=== PATIENT | female | born 1935 | race Caucasian/White ===

== ENCOUNTER 2022-06-25 10:44 | Emergency (ER) | payer OTHER ==
[~2022-06-25] VITALS: Ht 148.6 cm; Wt 59.0 kg
[2022-06-25 10:45] VITALS: BP 200/112
[2022-06-25] MEDS ORDERED: ONDANSETRON 4 MG/2 ML VIAL IVP ONE (11:20)
[2022-06-25] MEDS ORDERED: NACL 0.9% 1,000 ML IV ONE (11:20)
[2022-06-25 11:34] LABS: BASOPHILS % (AUTO) 0.3 % (0.0-2.0); EOSINOPHILS % (AUTO) 0.4 % (0.0-4.0); HEMATOCRIT 39.2 % (36-48); HEMOGLOBIN 12.9 g/dL (12.0-16.0); LYMPHOCYTES # (AUTO) 1.1 K/uL (2.5-16.5); LYMPHOCYTES % (AUTO) 11.1 % (20.5-51.1); MEAN CORPUSCULAR HEMOGLOBIN 28 pg (27-31); MEAN CORPUSCULAR HGB CONC 33 g/dL (33-37); MEAN CORPUSCULAR VOLUME 85.9 fL (80-94); MONOCYTES # (AUTO) 0.5 K/uL (0.8-1.0); NEUTROPHILS # (AUTO) 8.5 K/uL (1.8-7.7); NEUTROPHILS % (AUTO) 83.2 % (42.2-75.2); PLATELET COUNT (AUTO) 377 K/uL (140-450); RED BLOOD CELL COUNT(AUTO) 4.56 MIL/uL (4.20-5.40); RED CELL DISTRIBUTION WIDTH 14.4 % (11.6-13.7); WHITE BLOOD COUNT (AUTO) 10.2 K/uL (4.8-10.8)
--- NOTE | 2022-06-25 11:35 | NUR ---
ASSUMED PATIENT CARE, NURSING ASSESSMENT COMPLETED.
--- NOTE | 2022-06-25 11:55 | NUR ---
TO CT VIA [facility].
[2022-06-25 11:58] LABS: ANION GAP 7.2 (8-16); ASPARTATE AMINOTRANSFERASE 16 U/L (15-37); CARBON DIOXIDE 33.1 mmol/L (21-32); CHLORIDE 94 mmol/L (98-107); CREATININE 0.9 mg/dL (0.6-1.3); GLUCOSE 208 mg/dL (74-106); POTASSIUM 3.3 mmol/L (3.5-5.1); SODIUM SERUM 131 mmol/L (136-145); TOTAL BILIRUBIN 0.4 mg/dL (0.0-1.0); UREA NITROGEN, BLOOD 11 mg/dL (7-18)
--- NOTE | 2022-06-25 12:05 | NUR ---
BACK FROM CT.
[2022-06-25] MEDS ORDERED: DOXY-690 PO (13:58)
[2022-06-25 16:31] VITALS: BP 137/64
--- NOTE | 2022-06-25 16:32 | NUR ---
DISPO AND MEDICAL DECISION MAKING DC HOME WITH E-RX AND AFTERCARE INSTRUCTIONS, UNDERSTOOD BY PATIENT AND FAMILY WELL. VS WNL, DENIES DIZZINESS, AMBULATORY WITH STEADY GAIT, NAUSEA RESOLVED.
== END 2022-06-25 16:26 | disposition home or self-care (01) ==
LOC: MED 10:44
DX: R19.7 Diarrhea, unspecified (principal); R11.2 Nausea with vomiting, unspecified; R10.9 Unspecified abdominal pain; J18.9 Pneumonia, unspecified organism; I10 Essential (primary) hypertension; E78.5 Hyperlipidemia, unspecified; Z79.899 Other long term (current) drug therapy; Z88.0 Allergy status to penicillin
CPT/HCPCS: 36415; 70450; 71045; 74176; 80053; 84484; 85025; 96361; 96374; 99285; J2405; J7030

== ENCOUNTER 2022-08-02 19:09 | Inpatient (IN) | payer OTHER ==
[~2022-08-02] VITALS: Ht 152.4 cm; Wt 61.2 kg
[~2022-08-02 19:09] MED LIST: DOXY-690 PO
[2022-08-02 19:50] VITALS: BP 160/93
--- NOTE | 2022-08-02 19:50 | NUR ---
TO BED VIA WHEELCHAIR
[2022-08-02] MEDS ORDERED: ACETAMINOPHEN EXTRA STRENGTH 500 MG TAB PO ONE (20:00)
--- NOTE | 2022-08-02 20:00 | NUR ---
RECEIVED INBED 3 WITH C/O FEVER, COUGH STARTED YESTERDAY, SHE WAS GIVEN MOTRIN 600MG 1730MG
[2022-08-02] MEDS ORDERED: NACL 0.9% 1,000 ML IV ONE (20:55)
[2022-08-02 21:10] LABS: BASOPHILS % (AUTO) 0.3 % (0.0-2.0); EOSINOPHILS % (AUTO) 0.2 % (0.0-4.0); HEMATOCRIT 37.6 % (36-48); HEMOGLOBIN 12.4 g/dL (12.0-16.0); LYMPHOCYTES # (AUTO) 0.8 K/uL (2.5-16.5); LYMPHOCYTES % (AUTO) 6.2 % (20.5-51.1); MEAN CORPUSCULAR HEMOGLOBIN 28 pg (27-31); MEAN CORPUSCULAR HGB CONC 33 g/dL (33-37); MEAN CORPUSCULAR VOLUME 84.7 fL (80-94); MONOCYTES # (AUTO) 0.7 K/uL (0.8-1.0); MONOCYTES % (AUTO) 5.4 % (1.7-9.3); NEUTROPHILS # (AUTO) 11.3 K/uL (1.8-7.7); NEUTROPHILS % (AUTO) 87.9 % (42.2-75.2); PLATELET COUNT (AUTO) 374 K/uL (140-450); RED BLOOD CELL COUNT(AUTO) 4.43 MIL/uL (4.20-5.40); RED CELL DISTRIBUTION WIDTH 14.6 % (11.6-13.7); WHITE BLOOD COUNT (AUTO) 12.9 K/uL (4.8-10.8)
[2022-08-02 21:40] LABS: ALBUMIN 4.2 g/dL (3.4-5.0); ANION GAP 13.1 (8-16); ASPARTATE AMINOTRANSFERASE 9 U/L (15-37); CARBON DIOXIDE 28.9 mmol/L (21-32); CHLORIDE 94 mmol/L (98-107); CREATININE 0.7 mg/dL (0.6-1.3); GLUCOSE 202 mg/dL (74-106); SODIUM SERUM 133 mmol/L (136-145); TOTAL BILIRUBIN 0.7 mg/dL (0.0-1.0); UREA NITROGEN, BLOOD 11 mg/dL (7-18)
--- NOTE | 2022-08-02 22:00 | NUR ---
UP TO BR WITH DAUGHTER, STEADY GAIT
[2022-08-02] MEDS ORDERED: AZITHROMYCIN 500 MG in DEXTROSE 5% 250 ML IV ONE (22:10)
[2022-08-02] MEDS ORDERED: POTASSIUM CHLORIDE 10 MEQ TABER PO ONE (23:05)
[2022-08-02] MEDS ORDERED: KCL 20 MEQ IN 100 mL PREMIX 100 ML IV ONE (23:05)
[2022-08-02] MEDS ORDERED: POTASSIUM CHLORIDE 10 MEQ TABER PO PRN (23:10)
[2022-08-02] MEDS ORDERED: MAGNESIUM OXIDE 400 MG TAB PO PRN (23:10)
[2022-08-02] MEDS ORDERED: ACETAMINOPHEN 325 MG TAB PO PRN (23:10)
[2022-08-02] MEDS ORDERED: MORPHINE SULFATE 4 MG/ML SYR IVP PRN (23:10)
[2022-08-02] MEDS ORDERED: HYDROcodone/APAP 5/325 MG 1 TAB TAB PO PRN (23:10)
[2022-08-02] MEDS ORDERED: AZITHROMYCIN 500 MG INJ VIAL IV ONE (23:29)
[2022-08-02] MEDS ORDERED: cefTRIAXone 1,000 MG VIAL ONE (23:30)
[2022-08-02] MEDS: NACL 0.9% 1,000 ML IV SCH (23:59)
[2022-08-03] MEDS ORDERED: ALBUTEROL SULFATE/IPRATROPIU 3 ML SOL IH SCH (01:00)
--- NOTE | 2022-08-03 01:06 | NUR ---
REPORT TO [facility]
[2022-08-03 01:30] VITALS: BP 155/83
--- NOTE | 2022-08-03 01:30 | NUR ---
RECEIVED PT FROM ER, PATIENT IS AWAKE,ALERT AND ORIENTED. DENIES PAIN. DENIES SHORTNESS OF BREATH. DAUGHTER AT THE BEDSIDE. SKIN WARM AND DRY TO TOUCH. AMBULATED TO THE BATHROOM AND BACK TO BED WITH STEADY GAIT. SAFETY PRECAUTIONS IN PLACE, CALL LIGHT GIVEN TO PT, INSTRUCTION ON USE PROVIDED, RETURN DEMONSTRATION DONE, ENCOURAGED TO CALL IF ASSISTANCE IS NEEDED.
[2022-08-03] MEDS: NACL 0.9% 1,000 ML IV SCH ×2 (02:23→19:00)
[2022-08-03 04:00] VITALS: BP 148/75
--- NOTE | 2022-08-03 06:52 | NUR ---
PATIENT IS AWAKE, EATING PUDDING. DENIES PAIN. ALL NEEDS ATTENDED TO. SAFETY PRECAUTIONS IN PLACE, CALL LIGHT IN REACH.
--- NOTE | 2022-08-03 07:36 | NUR ---
RECEIVED PATIENT FROM REFERENCE ARCHIVIST NURSE.PATIENT SLEEPING IN BED.NO OTHER SIGNS OF DISTRESS NOTED. CHEST RISING NAD FALLING EVENLY.CALL LIGHT WITHIN REACH. POC DISCUSSED WITH ENDORSING NURSE.WILL CONTINUE TO MONITOR.
[2022-08-03 07:38] LABS: BASOPHILS % (AUTO) 0.2 % (0.0-2.0); EOSINOPHILS % (AUTO) 0.1 % (0.0-4.0); HEMATOCRIT 34.6 % (36-48); HEMOGLOBIN 11.4 g/dL (12.0-16.0); LYMPHOCYTES # (AUTO) 0.8 K/uL (2.5-16.5); LYMPHOCYTES % (AUTO) 5.6 % (20.5-51.1); MEAN CORPUSCULAR HEMOGLOBIN 28 pg (27-31); MEAN CORPUSCULAR HGB CONC 33 g/dL (33-37); MEAN CORPUSCULAR VOLUME 84.6 fL (80-94); MONOCYTES % (AUTO) 7.2 % (1.7-9.3); NEUTROPHILS # (AUTO) 12.5 K/uL (1.8-7.7); NEUTROPHILS % (AUTO) 86.9 % (42.2-75.2); PLATELET COUNT (AUTO) 340 K/uL (140-450); RED BLOOD CELL COUNT(AUTO) 4.09 MIL/uL (4.20-5.40); RED CELL DISTRIBUTION WIDTH 14.7 % (11.6-13.7); WHITE BLOOD COUNT (AUTO) 14.4 K/uL (4.8-10.8)
[2022-08-03 07:50] LABS: ANION GAP 12.8 (8-16); CARBON DIOXIDE 26.1 mmol/L (21-32); CHLORIDE 101 mmol/L (98-107); CREATININE 0.6 mg/dL (0.6-1.3); GLUCOSE 187 mg/dL (74-106); SODIUM SERUM 137 mmol/L (136-145); UREA NITROGEN, BLOOD 10 mg/dL (7-18)
[2022-08-03 07:52] LABS: POTASSIUM 2.9 mmol/L (3.5-5.1)
[2022-08-03 08:00] VITALS: BP 153/85
[2022-08-03] MEDS ORDERED: LABETALOL 20 MG/4 ML VIAL IVP PRN (08:05)
[2022-08-03] MEDS ORDERED: POTASSIUM CHLORIDE 10 MEQ TABER PO SCH (08:30)
[2022-08-03] MEDS ORDERED: MAG SULF 2000 MG/WATER PREMIX 50 ML IV SCH (09:00)
--- NOTE | 2022-08-03 10:29 | NUR ---
PATIENT HAS BEEN SCREENED AND CATEGORIZED MODERATE NUTRITION RISK. PATIENT WILL BE SEEN WITHIN 3-5 DAYS OF ADMISSION. [address]
[2022-08-03 12:00] VITALS: BP 153/85
[2022-08-03 16:00] VITALS: BP 146/84
--- NOTE | 2022-08-03 16:11 | NUR ---
DC PLANNING ASSESSMENT COMPLETE PLEASE REFER TO ASSESSMENT FOR ADDITIONAL DETAILS PT HEAVILY SLEEPING, THEREFORE SW OUTREACHED TO PTS DAUGHTER, PEDRO TO GATHER COLLAT INFO. PT IS AN 87 YR OLD FEMALE ADMITTED TO [facility] FROM HOME W/ DX OF PNEUMONIA AND BODY ACHES. PT IS REPORTED TO UTILIZE CANE, NEEDED, HOWEVER, PEDRO REPORTS PCP RECENTLY PROVIDED PT WITH PRESCRIPTION FOR FWW W/SEAT. PT IS REPORTED TO COMPLETE ADL'S INDEPENDENTLY. PT RESIDES IN A SINGLE STORY HOME WITH HER DAUGHTER, AT THE ADDRESS LISTED ON FILE. PEDRO DECLINED NEED FOR RESOURCES AT THIS TIME AND WAS PROVIDED WITH CONTACT INFO. IN THE EVENT IF NEEDED WHILE PT IS ADMITTED PEDRO REPORTS TENTATIVE DC PLAN IS FOR PT TO RETURN HOME WITH FAMILY PROVIDING TRANSPORTATION, ONCE MEDICALLY STABLE. Addendum: 08/03/22 at 1612 by Shelley Pack SS Amended: Links added.
--- NOTE | 2022-08-03 16:30 | NUR ---
TEMPERATURE NOTED 100.1, MEDICATED WITH PRN TYLENOL. WILL CONTINUE TO MONITOR.
--- NOTE | 2022-08-03 19:07 | NUR ---
ENDORSED THE PATIENT TO PRODUCT TECHNICIAN NURSE FOR CONTINUITY OF CARE.[id number]
--- NOTE | 2022-08-03 19:10 | NUR ---
RECEIVED PT IN BED AWAKE,ALERT AND ORIENTED. FAMILY MEMBER AT THE BEDSIDE. DENIES PAIN. DENIES SHORTNESS OF BREATH. SKIN WARM AND DRY TO TOUCH. SAFETY PRECAUTIONS IN PLACE, CALL LIGHT IN REACH.
[2022-08-03 20:00] VITALS: BP 113/62
[2022-08-04] VITALS: BP 129/75
--- NOTE | 2022-08-04 | NUR ---
VITAL SIGNS TAKEN AND DOCUMENTED. NO DISTRESS NOTED. CALL LIGHT REMAINS WITHIN REACH.
[2022-08-04 04:00] VITALS: BP 157/87
--- NOTE | 2022-08-04 06:22 | NUR ---
PATIENT IS ASLEEP. NO DISTRESS NOTED. ALL NEEDS ATTENDED TO. SAFETY PRECAUTIONS MAINTAINED DURING THE SHIFT, CALL LIGHT REMAINS WITHIN REACH.
[2022-08-04 07:16] LABS: BASOPHILS % (AUTO) 0.3 % (0.0-2.0); EOSINOPHILS # (AUTO) 0.1 K/uL (0-0.4); HEMATOCRIT 34.2 % (36-48); HEMOGLOBIN 11.2 g/dL (12.0-16.0); LYMPHOCYTES # (AUTO) 1.2 K/uL (2.5-16.5); LYMPHOCYTES % (AUTO) 11.2 % (20.5-51.1); MEAN CORPUSCULAR HEMOGLOBIN 28 pg (27-31); MEAN CORPUSCULAR HGB CONC 33 g/dL (33-37); MEAN CORPUSCULAR VOLUME 84.9 fL (80-94); MONOCYTES # (AUTO) 0.7 K/uL (0.8-1.0); MONOCYTES % (AUTO) 7.1 % (1.7-9.3); NEUTROPHILS # (AUTO) 8.4 K/uL (1.8-7.7); NEUTROPHILS % (AUTO) 80.4 % (42.2-75.2); PLATELET COUNT (AUTO) 333 K/uL (140-450); RED BLOOD CELL COUNT(AUTO) 4.02 MIL/uL (4.20-5.40); RED CELL DISTRIBUTION WIDTH 14.6 % (11.6-13.7); WHITE BLOOD COUNT (AUTO) 10.4 K/uL (4.8-10.8)
--- NOTE | 2022-08-04 07:36 | NUR ---
received patient from film processing shift supervisor nurse.patient in bed, verbally responses.call light within reach.all safety measures in place.will continue to monitor.
[2022-08-04 07:48] LABS: ANION GAP 13.5 (8-16); CARBON DIOXIDE 26.6 mmol/L (21-32); CHLORIDE 104 mmol/L (98-107); CREATININE 0.5 mg/dL (0.6-1.3); GLUCOSE 157 mg/dL (74-106); POTASSIUM 3.1 mmol/L (3.5-5.1); SODIUM SERUM 141 mmol/L (136-145); UREA NITROGEN, BLOOD 7 mg/dL (7-18)
[2022-08-04 08:00] VITALS: BP 96/52
[2022-08-04] MEDS: NACL 0.9% 1,000 ML IV SCH (09:23)
[2022-08-04] MEDS ORDERED: LEVO750T75 PO (11:39)
[2022-08-04] MEDS ORDERED: ACET-1182 PO (11:39)
[2022-08-04 11:52] VITALS: BP 96/52
[2022-08-04 12:00] VITALS: BP 123/73
--- NOTE | 2022-08-04 12:14 | NUR ---
FREQUENT ROUNDS DONE. PATIENT ALERT AND ORIENTED. NO OTHER SIGNS OF DISTRESS NOTED. DISCHARGE ORDERS IN PLACE. INFORMED REGARDING THE DISCHARGE WAITING FOR FAMILY MEMBER.
[2022-08-06] MEDS ORDERED: LEVO750T75 PO (11:21)
--- NOTE | 2022-08-06 16:03 | NUR ---
MARITZA LOPES CALLED DR ESTES'S OFFICE LOCATED AT [address] [place], [place] [id number]. SPOKE WITH ROXI AND WAS ABLE TO MAKE APPOINTMENT FOR 08/08/2022 AT 0920. CALLED PT BUT IT WAS DAUGHTER PEDRO THAT ANSWERED AND INFORMED HER OF THE ABOVE INFORMATION.
--- NOTE | 2022-08-09 14:04 | NUR ---
LATE ENTRY --- CONFIRMED WITH RN FOR END TIMES OF FOLLOWING INFUSIONS: 08/03 MAGNESIUM END TIME: 6800
== END 2022-08-04 13:45 | disposition home or self-care (01) | DRG 720 ==
LOC: MED 19:09 → OBSVTOIN 23:33 → MTU 23:33
PROVIDERS: ADMIT Internal Medicine; ATTEND Internal Medicine
DX: A41.9 Sepsis, unspecified organism (principal); J18.9 Pneumonia, unspecified organism; E78.00 Pure hypercholesterolemia, unspecified; I10 Essential (primary) hypertension; K21.9 Gastro-esophageal reflux disease without esophagitis; E78.5 Hyperlipidemia, unspecified; E87.6 Hypokalemia; Z85.21 Personal history of malignant neoplasm of larynx; Z88.0 Allergy status to penicillin; Z79.899 Other long term (current) drug therapy
CPT/HCPCS: 36415; 71045; 80048; 80053; 83605; 83735; 84484; 85025; 87040; 87081; G0378; J0456; J0696; J1644; J3475; J3480; J7060; Q0092

== ENCOUNTER 2022-10-22 15:46 | Emergency (ER) | payer OTHER ==
[~2022-10-22] VITALS: Ht 154.9 cm; Wt 60.3 kg
[~2022-10-22 15:46] MED LIST changes: +ACET-1182 PO; -DOXY-690 PO; +LEVO750T75 PO
[2022-10-22 15:47] VITALS: BP 196/95
--- NOTE | 2022-10-22 15:54 | NUR ---
BLOOD GLUCOSE = 169
--- NOTE | 2022-10-22 16:20 | NUR ---
PATIENT BROUGHT TO BED 4
[2022-10-22] MEDS ORDERED: amLODIPine 5 MG TAB PO ONE (16:40)
[2022-10-22 16:50] LABS: BASOPHILS % (AUTO) 0.6 % (0.0-2.0); EOSINOPHILS # (AUTO) 0.1 K/uL (0-0.4); EOSINOPHILS % (AUTO) 2.1 % (0.0-4.0); HEMATOCRIT 35.8 % (36-48); HEMOGLOBIN 11.8 g/dL (12.0-16.0); LYMPHOCYTES # (AUTO) 1.8 K/uL (2.5-16.5); LYMPHOCYTES % (AUTO) 30.1 % (20.5-51.1); MEAN CORPUSCULAR HEMOGLOBIN 29 pg (27-31); MEAN CORPUSCULAR HGB CONC 33 g/dL (33-37); MEAN CORPUSCULAR VOLUME 87.2 fL (80-94); MONOCYTES # (AUTO) 0.6 K/uL (0.8-1.0); MONOCYTES % (AUTO) 10.4 % (1.7-9.3); NEUTROPHILS # (AUTO) 3.3 K/uL (1.8-7.7); NEUTROPHILS % (AUTO) 56.8 % (42.2-75.2); PLATELET COUNT (AUTO) 252 K/uL (140-450); RED CELL DISTRIBUTION WIDTH 15.9 % (11.6-13.7); WHITE BLOOD COUNT (AUTO) 5.9 K/uL (4.8-10.8)
--- NOTE | 2022-10-22 17:00 | NUR ---
Pt bib daughter for an episode of tinglining in face this morning. Pt has previous trauma from a dog bite 7 years ago. Pt states pt regularly has tightness or abnormal sensation at that part of her face. Pt did not want to come to ED, but daughter insisted. Pt a/o x 4, vss, no ss of acute distress, breathing equal and unlabored, speech clear, on monitor. Pt denies any abnormal sensation now. Tinglining subsided minutes after she had it. No complaints at this time.
[2022-10-22 17:07] LABS: ALBUMIN 3.7 g/dL (3.4-5.0); ANION GAP 8.7 (8-16); ASPARTATE AMINOTRANSFERASE 18 U/L (15-37); CARBON DIOXIDE 30.9 mmol/L (21-32); CHLORIDE 104 mmol/L (98-107); GLUCOSE 152 mg/dL (74-106); POTASSIUM 3.6 mmol/L (3.5-5.1); SODIUM SERUM 140 mmol/L (136-145); TOTAL BILIRUBIN 0.3 mg/dL (0.0-1.0); UREA NITROGEN, BLOOD 21 mg/dL (7-18)
[2022-10-22 17:15] LABS: APPEARANCE,URINE CLEAR (CLEAR); BILIRUBIN,URINE NEGATIVE (NEGATIVE); BLOOD, URINE 1+ (NEGATIVE); COLOR,URINE YELLOW (YELLOW); LEUKOCYTE ESTERASE ,URINE 1+ (NEGATIVE); NITRITE, URINE POSITIVE (NEGATIVE); UGLUCOSE NEGATIVE (NEGATIVE)
[2022-10-22] MEDS ORDERED: NITR100C7 PO (17:45)
--- NOTE | 2022-10-22 19:15 | NUR ---
Patient resting in bed, A/Ox4, chest rise and fall symmetrical, no c/o pain or s/s of distress, on monitor.
[2022-10-22 19:33] VITALS: BP 152/81
== END 2022-10-22 19:33 | disposition home or self-care (01) ==
LOC: MED 15:46
DX: I10 Essential (primary) hypertension (principal); N39.0 Urinary tract infection, site not specified; R20.0 Anesthesia of skin; K21.9 Gastro-esophageal reflux disease without esophagitis; Z20.822 Contact with and (suspected) exposure to COVID-19; Z85.21 Personal history of malignant neoplasm of larynx; Z88.0 Allergy status to penicillin; Z79.899 Other long term (current) drug therapy
CPT/HCPCS: 36415; 70450; 80053; 81001; 82948; 84484; 85025; 87086; 93005; 99284; 99285

== ENCOUNTER 2023-04-20 11:38 | Emergency (ER) | payer OTHER ==
[~2023-04-20] VITALS: Ht 147.3 cm; Wt 61.7 kg
[~2023-04-20 11:38] MED LIST changes: +NITR100C7 PO
[2023-04-20 11:59] VITALS: BP 143/69; PULSE 92; RESP 18; TEMP 97.8; O2SAT 98
[2023-04-20 13:48] LABS: APPEARANCE,URINE CLEAR (CLEAR); BILIRUBIN,URINE NEGATIVE (NEGATIVE); BLOOD, URINE TRACE-I (NEGATIVE); COLOR,URINE YELLOW (YELLOW); LEUKOCYTE ESTERASE ,URINE 1+ (NEGATIVE); NITRITE, URINE POSITIVE (NEGATIVE); PH,URINE 7.5 (5.0-9.0); PROTEIN,URINE NEGATIVE (NEGATIVE); UGLUCOSE NEGATIVE (NEGATIVE); UROBILINOGEN,URINE 0.2 EU/dL (0.2 - 1)
[2023-04-20 14:12] LABS: BACTERIA,URINE 3+ /HPF (None Seen); RBC,URINE 0-5 /HPF (0-5)
[2023-04-20 14:13] LABS: SQUAMOUS EPITHELIAL CELL,UR 4-10 (MOD) /LPF (0-3 (FEW))
[2023-04-20 14:22] LABS: BASOPHILS % (AUTO) 0.5 % (0.0-2.0); EOSINOPHILS # (AUTO) 0.1 K/uL (0-0.4); EOSINOPHILS % (AUTO) 0.9 % (0.0-4.0); HEMATOCRIT 37.2 % (36-48); HEMOGLOBIN 12.2 g/dL (12.0-16.0); LYMPHOCYTES # (AUTO) 1.9 K/uL (2.5-16.5); LYMPHOCYTES % (AUTO) 23.2 % (20.5-51.1); MEAN CORPUSCULAR HEMOGLOBIN 29 pg (27-31); MEAN CORPUSCULAR HGB CONC 33 g/dL (33-37); MEAN CORPUSCULAR VOLUME 88.1 fL (80-94); MONOCYTES # (AUTO) 0.7 K/uL (0.8-1.0); MONOCYTES % (AUTO) 8.4 % (1.7-9.3); NEUTROPHILS # (AUTO) 5.5 K/uL (1.8-7.7); PLATELET COUNT (AUTO) 278 K/uL (140-450); RED BLOOD CELL COUNT(AUTO) 4.22 MIL/uL (4.20-5.40); RED CELL DISTRIBUTION WIDTH 14.3 % (11.6-13.7); WHITE BLOOD COUNT (AUTO) 8.2 K/uL (4.8-10.8)
[2023-04-20] MEDS ORDERED: KETOROLAC 30 MG/ML VIAL IVP ONE (14:25)
[2023-04-20 14:49] LABS: ALANINE AMINOTRANSFERASE 21 U/L (12-78); ALBUMIN 4.1 g/dL (3.4-5.0); ALKALINE PHOSPHATASE 64 U/L (50-136); ANION GAP 11.7 (8-16); ASPARTATE AMINOTRANSFERASE 14 U/L (15-37); CALCIUM 9.4 mg/dL (8.5-10.1); CARBON DIOXIDE 31.3 mmol/L (21-32); CHLORIDE 105 mmol/L (98-107); CREATININE 0.6 mg/dL (0.6-1.3); GLUCOSE 99 mg/dL (74-106); LIPASE 41 U/L (16-77); SODIUM SERUM 144 mmol/L (136-145); TOTAL BILIRUBIN 0.5 mg/dL (0.0-1.0); TOTAL PROTEIN, SERUM 7.6 g/dL (6.4-8.2); UREA NITROGEN, BLOOD 12 mg/dL (7-18)
[2023-04-20] MEDS ORDERED: IBUP-2213 PO (17:23)
[2023-04-20] MEDS ORDERED: CIPR500T4 PO (17:23)
[2023-04-20 18:05] VITALS: BP 142/87; PULSE 85; RESP 16; TEMP 97.8; O2SAT 100
== END 2023-04-20 18:05 | disposition home or self-care (01) ==
LOC: MED 11:38
DX: N39.0 Urinary tract infection, site not specified (principal); K21.9 Gastro-esophageal reflux disease without esophagitis; I10 Essential (primary) hypertension; Z98.890 Other specified postprocedural states; Z79.899 Other long term (current) drug therapy; Z79.2 Long term (current) use of antibiotics; Z88.0 Allergy status to penicillin
CPT/HCPCS: 36415; 71045; 74176; 80053; 81001; 83690; 84484; 85025; 87086; 96374; 99285; J1885

== ENCOUNTER 2023-10-04 15:02 | Emergency (ER) | payer OTHER ==
[~2023-10-04] VITALS: Ht 154.9 cm; Wt 63.0 kg
[~2023-10-04 15:02] MED LIST changes: +CIPR500T4 PO; +IBUP-2213 PO
[2023-10-04 15:03] VITALS: BP 153/71; PULSE 98; RESP 18; TEMP 98.4; O2SAT 98
[2023-10-04] MEDS: LIDOCAINE 5% 1 EA PATCH TP ONE (16:07)
[2023-10-04] MEDS: CYCLOBENZAPRINE 10 MG TAB PO ONE (16:08)
[2023-10-04] MEDS: ACETAMINOPHEN EXTRA STRENGTH 500 MG TAB PO ONE (16:08)
[2023-10-04] MEDS: KETOROLAC 30 MG/ML VIAL IM ONE (16:10)
[2023-10-04 16:24] LABS: APPEARANCE,URINE CLEAR (CLEAR); BILIRUBIN,URINE NEGATIVE (NEGATIVE); BLOOD, URINE 1+ (NEGATIVE); COLOR,URINE YELLOW (YELLOW); LEUKOCYTE ESTERASE ,URINE TRACE (NEGATIVE); NITRITE, URINE NEGATIVE (NEGATIVE); PH,URINE 6.5 (5.0-9.0); PROTEIN,URINE NEGATIVE (NEGATIVE); UGLUCOSE NEGATIVE (NEGATIVE); UROBILINOGEN,URINE 0.2 EU/dL (0.2 - 1)
[2023-10-04 16:37] LABS: BACTERIA,URINE 10-30 (MOD) /HPF (None Seen); SQUAMOUS EPITHELIAL CELL,UR 0-3 (FEW) /LPF (0-3 (FEW))
[2023-10-04 16:37] LABS: BASOPHILS % (AUTO) 0.5 % (0.0-2.0); EOSINOPHILS # (AUTO) 0.1 K/uL (0-0.4); EOSINOPHILS % (AUTO) 1.9 % (0.0-4.0); HEMATOCRIT 37.3 % (36-48); HEMOGLOBIN 12.7 g/dL (12.0-16.0); LYMPHOCYTES # (AUTO) 1.4 K/uL (2.5-16.5); LYMPHOCYTES % (AUTO) 25.1 % (20.5-51.1); MEAN CORPUSCULAR HEMOGLOBIN 30 pg (27-31); MEAN CORPUSCULAR HGB CONC 34 g/dL (33-37); MEAN CORPUSCULAR VOLUME 88.6 fL (80-94); MONOCYTES # (AUTO) 0.6 K/uL (0.8-1.0); MONOCYTES % (AUTO) 10.6 % (1.7-9.3); NEUTROPHILS # (AUTO) 3.5 K/uL (1.8-7.7); NEUTROPHILS % (AUTO) 61.9 % (42.2-75.2); PLATELET COUNT (AUTO) 285 K/uL (140-450); RED BLOOD CELL COUNT(AUTO) 4.21 MIL/uL (4.20-5.40); RED CELL DISTRIBUTION WIDTH 13.9 % (11.6-13.7); WHITE BLOOD COUNT (AUTO) 5.7 K/uL (4.8-10.8)
[2023-10-04 16:58] LABS: ALANINE AMINOTRANSFERASE 23 U/L (12-78); ALKALINE PHOSPHATASE 67 U/L (50-136); ASPARTATE AMINOTRANSFERASE 19 U/L (15-37); CALCIUM 9.3 mg/dL (8.5-10.1); CARBON DIOXIDE 32.2 mmol/L (21-32); CHLORIDE 100 mmol/L (98-107); CREATININE 0.9 mg/dL (0.6-1.3); GLUCOSE 223 mg/dL (74-106); POTASSIUM 3.2 mmol/L (3.5-5.1); SODIUM SERUM 139 mmol/L (136-145); TOTAL BILIRUBIN 0.4 mg/dL (0.0-1.0); TOTAL PROTEIN, SERUM 7.5 g/dL (6.4-8.2); UREA NITROGEN, BLOOD 14 mg/dL (7-18)
[2023-10-04] MEDS ORDERED: LID5T TP (17:12)
[2023-10-04] MEDS: POTASSIUM CHLORIDE 10 MEQ TABER PO ONE (17:12)
[2023-10-04] MEDS ORDERED: SULF-59 PO (17:12)
[2023-10-04 17:41] VITALS: BP 148/69; PULSE 88; RESP 18; TEMP 98.4; O2SAT 98
== END 2023-10-04 17:45 | disposition home or self-care (01) ==
LOC: MED 15:02
DX: K80.20 Calculus of gallbladder without cholecystitis without obstruction (principal); N28.1 Cyst of kidney, acquired; E87.6 Hypokalemia; I10 Essential (primary) hypertension; K21.9 Gastro-esophageal reflux disease without esophagitis; Z79.899 Other long term (current) drug therapy
CPT/HCPCS: 36415; 71250; 74176; 80053; 81001; 85025; 87086; 87186; 96372; 99285; J1885